=== PATIENT | female | born 1970 | race Hispanic/Latino ===

== ENCOUNTER 2018-08-09 11:53 | Emergency (ER) | payer OTHER ==
[~2018-08-09 11:53] MED LIST: CIPR-245 PO; LISI10TA7 PO
[2018-08-09 12:40] LABS: APPEARANCE,URINE Cloudy (CLEAR); BILIRUBIN,URINE Negative (NEGATIVE); COLOR,URINE Yellow (YELLOW); GLUCOSE, URINE (UA) Negative (NEGATIVE); KETONES,URINE Negative (NEGATIVE); LEUKOCYTE ESTERASE ,URINE Moderate (NEGATIVE); NITRATE,URINE Negative (NEGATIVE); OCCULT BLOOD,URINE Large (NEGATIVE); PH,URINE 5.5 (5.0-8.0); PROTEIN,URINE POS 1+ (NEGATIVE)
[2018-08-09 12:58] LABS: BASOPHILS % (AUTO) 0.4 % (0.0-5.0); EOSINOPHILS % (AUTO) 1.1 % (0.0-8.0); HEMATOCRIT 36.1 % (36-48); LYMPHOCYTES % (AUTO) 17.4 % (21.0-51.0); MEAN CORPUSCULAR HEMOGLOBIN 29.1 pg (27.0-33.0); MEAN CORPUSCULAR HGB CONC 33.8 g/dL (32.0-36.0); MEAN CORPUSCULAR VOLUME 86.1 fL (79-99); MONOCYTES % (AUTO) 9.1 % (3.0-13.0); PLATELET COUNT (AUTO) 397 K/uL (130-400); RED CELL DISTRIBUTION WIDTH 13.3 % (11.0-15.5); WHITE BLOOD COUNT (AUTO) 13.5 K/uL (4.8-10.8)
[2018-08-09 13:06] LABS: CREATININE 0.6 mg/dL (0.5-1.5); POTASSIUM 3.6 mmol/L (3.5-5.1)
[2018-08-09 13:15] LABS: HCG,QUAL RESULT NEGATIVE (NEGATIVE)
[2018-08-09 14:10] LABS: BACTERIA,URINE Rare /HPF (None Seen); SQUAMOUS EPITHELIAL CELL,UR Few /HPF (0-2); WBC,URINE 0-1 /HPF (0-1)
== END 2018-08-09 14:26 | disposition home or self-care (01) ==
LOC: EDH 11:53
DX: R10.31 Right lower quadrant pain (principal); R10.2 Pelvic and perineal pain; I10 Essential (primary) hypertension; Z88.6 Allergy status to analgesic agent; Z98.890 Other specified postprocedural states
CPT/HCPCS: 36415; 76830; 80048; 81001; 81025; 85025; 87486; 87797

== ENCOUNTER 2018-10-13 20:41 | Emergency (ER) | payer OTHER | END 2018-10-13 22:40 | disposition home or self-care (01) | LOC: EDH 20:41 | DX: S39.012A Strain of muscle, fascia and tendon of lower back, initial encounter (principal); I10 Essential (primary) hypertension; Z88.5 Allergy status to narcotic agent; W18.39XA Other fall on same level, initial encounter; Y93.89 Activity, other specified; Y92.89 Other specified places as the place of occurrence of the external cause; Y99.8 Other external cause status | CPT/HCPCS: 72131; 81025 ==

== ENCOUNTER 2024-03-18 19:59 | Emergency (ER) | payer OTHER ==
[~2024-03-18] VITALS: Ht 154.9 cm; Wt 71.2 kg
[~2024-03-18 19:59] MED LIST changes: -CIPR-245 PO; +CIPR500T10 PO; +LISI10TA24 PO; -LISI10TA7 PO
[2024-03-18] MEDS ORDERED: PRED20TA3 PO (21:58)
[2024-03-18] MEDS ORDERED: VALA100031 PO (21:58)
[2024-03-18 22:29] VITALS: BP 165/90; PULSE 57; RESP 12; O2SAT 98
[2024-03-18] MEDS: DEXAMETHASONE SOD PHOSPHATE 4 MG/ML 1ML VIAL IM ONE (22:34)
== END 2024-03-18 22:39 | disposition home or self-care (01) ==
LOC: EDH 19:59
DX: G51.0 Bell's palsy (principal); I10 Essential (primary) hypertension; Z79.899 Other long term (current) drug therapy; Z98.890 Other specified postprocedural states; Z88.5 Allergy status to narcotic agent
CPT/HCPCS: 99283; 96372; J1100

== ENCOUNTER 2025-05-18 10:36 | Emergency (ER) | payer BC ==
[~2025-05-18] VITALS: Ht 154.9 cm; Wt 73.9 kg
[~2025-05-18 10:36] MED LIST changes: -CIPR500T10 PO; +IBUP-2076 PO
[2025-05-18] MEDS: MAGNESIUM CITRATE 296 ML SOLUTION PO ONE (11:14)
[2025-05-18] MEDS: LACTULOSE 20 GM/30 ML UDCUP PO ONE (11:14)
[2025-05-18 11:18] LABS: IMMATURE GRANULOCYTE ABSOLUTE 0.02 K/uL (0-1); NUCLEATED RED BLOOD CELLS 0.0 % (0.0-0.19); PLATELET COUNT (AUTO) 459 K/uL (130-400); RED BLOOD CELL COUNT(AUTO) 4.20 MIL/uL (4.00-5.50); RED CELL DISTRIBUTION WIDTH 12.3 % (11.0-15.5); WHITE BLOOD COUNT (AUTO) 7.0 K/uL (4.8-10.8)
[2025-05-18 11:21] LABS: CREATININE 0.6 mg/dL (0.5-1.0); GLOMERULAR FILTR. RATE CALC 107.0 mL/min (>90); GLUCOSE,RANDOM 106.0 mg/dL (70-105); SODIUM SERUM 138.0 mmol/L (136-145); UREA NITROGEN, BLOOD 11.0 mg/dL (7-18)
--- NOTE | 2025-05-18 12:14 | ERN ---
General Chief Complaint: Constipation Stated Complaint: CONSTIPATION Time Seen by MD: 10:40 Source: patient History of Present Illness Initial Comments Patient is a 55-year-old female coming in complaining of constipation. Per patient she had surgery on the 14 toe days ago for gallbladder removal. She states that three days ago she started having some problems defecating. Allergies: Coded Allergies: morphine (Verified Allergy, Unknown, 01/07/17) Home Meds Active Scripts Ibuprofen (Ibuprofen) 400 Mg Tablet, 400 MG PO Q6HPRN PRN for PAIN for 30 Days, #30 TAB Prov:ANJUM SOLIS MD 05/07/25 Reported Medications Lisinopril (Lisinopril) 10 Mg Tablet, 10 MG PO DAILY, TAB 01/07/17 Past Medical History Past Medical History: Diabetes-Type II, Hypothyroid Medical History Other: HX OF MERCER'S PALSY Past Surgical History: Cholecystectomy, ROS Dictation CONSTITUTIONAL: No chills, no fever, no weakness, no diaphoresis, no malaise. HEAD/FACE: No signs of trauma. EENT: No eye pain, no blurred vision, no tearing, no double vision, no ear pain, no ear discharge, no nose pain, no nasal congestion, no throat pain, no throat swelling, no mouth pain. RESPIRATORY: No cough, no orthopnea, no SOB, no stridor, no wheezing. CARDIOVASCULAR: No chest pain, no edema, no palpitations, no syncope. GASTROINTESTINAL/ABDOMINAL: abdominal pain, constipation, no diarrhea, no nausea, no vomiting. GENITOURINARY: No abnormal discharge, no dysuria, no frequent urination, no he maturia. No complaints of pain in the genitals. MUSCULOSKELETAL: No back pain, no gout, no joint pain, no joint swelling, no m uscle pain, no muscle stiffness, no neck pain. INTEGUMENTARY: No change in color, no change in hair/nails, no dryness, no lesi on, no lumps, no rash. NEUROLOGICAL/PSYCH: No anxiety, not depressed, no emotional problem, no headache, no numbness, no pre-existing deficit, no history of seizures, no tremors, no weakness. HEMATOLOGIC/LYMPHATIC: Not anemic, no history of blood clots, no apparent bleeding, no bruising, glands not swollen. All Systems Negative, Except as Noted. Physical Exam Physical Exam Dictation VITAL SIGNS: Reviewed. GENERAL APPEARANCE: Alert, oriented x3, no acute distress, obese. HEAD AND FACE: Non-traumatic. EYES: PERRL, pink conjunctivas, eyelid no trauma, anterior chamber clear. EARS: Pinnas intact and no signs of trauma or erythema. Ear canals clear and no discharge. TMs no erythema. NOSE: No discharge, no bleeding. OROPHARYNX: Mouth normal, teeth no caries, tongue pink. Pharynx clear, no erythema. Tonsils no exudates, no abscesses noted. Mucous membrane moist. NECK: Supple, non-tender, no thyromegaly, no masses, no JVD, no bruits. BREAST: Deferred. CHEST: No tenderness, no crepitus, no paradoxical movement, no retractions. LUNGS: Clear, well-ventilated, symmetric, no rales, no wheezing, no rhonchi, no stridor, good breath sounds bilaterally. HEART: Regular rate, regular rhythm, no murmur, no gallops. VASCULAR: No peripheral edema. ABDOMEN: Soft, positive bowel sounds, distended, no guarding, tender, no rebound, no masses no hepatomegaly, no splenomegaly, no Briceno's sign, no hernias. RECTAL: Deferred. GENITAL: Deferred. NEUROLOGICAL: Normal speech, gross motor function intact, gross sensory function intact. MUSCULOSKELETAL: Neck nontender, full range of motion, back nontender, full range of motion. EXTREMITIES: Nontender, full range of motion. SKIN: Color pink, dry, no turgor, no rash, no lacerations, no abrasions, no contusions. LYMPHATICS: Deferred. Results Laboratory and Microbiology Lab and Micro Result Laboratory Tests Test 05/18/25 11:01 White Blood Count 7.0 K/uL (4.8-10.8) Red Blood Count 4.20 MIL/uL (4.00-5.50) Hemoglobin 12.4 g/dL (12.0-16.0) Hematocrit 37.1 % (36-48) Mean Corpuscular Volume 88.3 fL (79-99) Mean Corpuscular Hemoglobin 29.5 pg (27.0-33.0) Mean Corpuscular Hemoglobin Concent 33.4 g/dL (32.0-36.0) Red Cell Distribution Width 12.3 % (11.0-15.5) Platelet Count 459 K/uL (130-400) H Mean Platelet Volume 10.9 fL (7.5-10.5) H Immature Granulocyte % (Auto) 0.3 % (0-1) Neutrophils (%) (Auto) 50.1 % (40.0-77.0) Lymphocytes (%) (Auto) 37.9 % (21.0-51.0) Monocytes (%) (Auto) 8.7 % (3.0-13.0) Eosinophils (%) (Auto) 2.3 % (0.0-8.0) Basophils (%) (Auto) 0.7 % (0.0-5.0) Neutrophils # (Auto) 3.5 K/uL (1.8-7.7) Lymphocytes # (Auto) 2.7 K/uL (1.0-4.8) Monocytes # (Auto) 0.6 K/uL (0.1-1.0) Eosinophils # (Auto) 0.16 K/uL (0.00-0.70) Basophils # (Auto) 0.05 K/uL (0.00-0.20) Absolute Immature Granulocyte (auto 0.02 K/uL (0-1) Nucleated Red Blood Cells 0.0 % (0.0-0.19) Sodium Level 138 mmol/L (136-145) Potassium Level 3.9 mmol/L (3.5-5.1) Chloride Level 101 mmol/L (101-111) Carbon Dioxide Level 29 mmol/L (21-32) Blood Urea Nitrogen 11 mg/dL (7-18) Creatinine 0.6 mg/dL (0.5-1.0) Glomerular Filtration Rate Calc 107 mL/min (>90) Random Glucose 106 mg/dL (70-105) H Total Calcium 8.7 mg/dL (8.5-10.1) Labs Reviewed?: Yes MDM MDM: Differential diagnosis: Constipation, abdominal pain, Rationale: Tests considered and ordered secondary to shared decision making include: Previous outside records reviewed: Old ER visits. Risk of complication and/or morbidity or mortality of patient management: None Medications-Per medication reconciliation Need for hospitalization: Patient does not meet criteria for hospitalization. Patient is a 55-year-old female coming in complaining of constipation. Laboratory workup within normal limits. Patient received oral laxatives she also received lead enema. She states he was able to finally defecate discharged in stable condition with a diagnosis of constipation. I did advised her appropriate follow up with. ED Course Orders Procedure Category Date Status Time Cbc With Differential LAB 05/18/25 Complete 10:46 Basic Metabolic Panel LAB 05/18/25 Complete 10:46 Lactulose 20 Gm/30 Ml PHA 05/18/25 Complete Udcup (Constulose 11:00 Magnesium Citrate PHA 05/18/25 Complete (Magnesium Citrate) 11:00 Fleet Order CPOE 05/18/25 Transmitted 13:19 Current Medications Medications (Trade) Dose Ordered Sig/Mere Route PRN Reason Start Time Stop Time Status Last Admin Dose Admin Lactulose (Constulose 20gm/ 30ml Udcup) 20 gm ONCE ONCE PO 05/18/25 11:00 05/18/25 11:01 DC 05/18/25 11:14 Magnesium Citrate (Magnesium Citrate) 296 ml ONCE ONCE PO 05/18/25 11:00 05/18/25 11:01 DC 05/18/25 11:14 Vital Signs Date Time Temp Pulse Resp B/P (MAP) Pulse Ox O2 Delivery O2 Flow Rate FiO2 05/18/25 10:43 98.1 72 16 151/85 99 Room Air* 0 21 05/18/25 10:41 98.1 72 16 151/85 99 Room Air 0 DX & DISP Disposition: Discharge Departure Impression: Primary Impression: Constipation Condition: Stable Scripts Lactulose (Lactulose) 10 Gram/15 Ml Solution 30 ML PO BID for constipation, #500 ML 0 Refills Prov: JAROD STREET MD 05/18/25 Additional Instructions: FOLLOW-UP WITH PRIMARY CARE PROVIDER IN 1 TO 2 DAYS. TAKE MEDICATIONS DIRECTED HERE IN THE EMERGENCY ROOM. OKAY TO CONTINUE HOME MEDICATIONS UNLESS OTHERWISE DISCUSSED DURING YOUR VISIT IN THE EMERGENCY ROOM TODAY. RETURN TO YOUR NEAREST EMERGENCY ROOM IF SYMPTOMS WORSEN OR IF THERE IS NO IMPROVEMENT. CALL 911 IF YOU NEED IMMEDIATE ASSISTANCE. TAKE TYLENOL [id number] NEEDED AND IF NO CONTRAINDICATIONS ARE PRESENT. INCREASE ORAL HYDRATION. A WOUND CULTURE OR URINE CULTURE WAS ORDERED HERE IN THE EMERGENCY ROOM DEPARTMENT PLEASE FOLLOW-UP WITH PRIMARY CARE PROVIDER AND ADVISE THEM TO GET REPORTS FROM OUR FACILITY. IF YOU HAD ANY CARITO WRAP/SPLINTS THAT WERE APPLIED HERE, PLEASE DO NOT REMOVE THEM UNTIL YOU SEE YOUR PRIMARY CARE OR SPECIALTY. Referrals: Referrals: LORRAINE,SAMUEL MD (PCP) Time of Disposition: 13:[address] MD May 18, 2025 12:14
--- NOTE | 2025-05-18 13:22 | NUR ---
MISSY ENEMA ADMIN PER MD JAD LAI
[2025-05-18] MEDS ORDERED: LACT10SO85 PO (13:48)
[2025-05-18 13:50] VITALS: BP 142/80; PULSE 70; RESP 16; TEMP 98; O2SAT 99
--- NOTE | 2025-05-20 13:50 | OP ---
Operative Note: DATE OF PROCEDURE: 05/06/25 SURGEON: CHELO ARREOLA MD [employer]SEM[employer] MACHINE ADJUSTER: [] ANESTHESIA: [] General ANESTHESIOLOGIST/ARTIFICIAL FLOWERS DYER: [] PREOPERATIVE DIAGNOSIS: [] Acute cholecystitis POSTOPERATIVE DIAGNOSIS: [] The same SYNOPSIS: [] PROCEDURE: [] Laparoscopic cholecystectomy ESTIMATED BLOOD LOSS: [] Minimal INDICATIONS: [] DESCRIPTION OF PROCEDURE: []With the patient prepped in the usual fashion a supraumbilical incision was additionally directed to meet with placement of the trocar and abdomen insufflated. Three 5 mm trochars were placed in the right upper quadrant under direct vision. The gallbladder was exposed adhesions were taken down and I dissected triangle of Calot. The cystic duct was clearly identified was triple clipped and divided and the cystic artery was double clipped and divided. I took the gallbladder from the liver using cautery dissection and after removed from the liver bed I placed an in a bag. I cauterized the liver bed and I placed 40 cc of Marcaine 0.25% in the side of the abdomen as an abdominal tap block under direct vision. And after adequate hemostasis and irrigation I removed all the trochars under direct vision and the gallbladder was removed from the supraumbilical incision. After removing the gallbladder I placed interrupted [id number] Vicryl's and the fascia. All incisions were closed with gege Patient was stable at the end of the procedure CHELO ARREOLA MD May 20, 2025 13:50
== END 2025-05-18 13:56 | disposition home or self-care (01) ==
LOC: EDH 10:36
DX: K59.00 Constipation, unspecified (principal); E11.9 Type 2 diabetes mellitus without complications; E03.9 Hypothyroidism, unspecified; Z79.899 Other long term (current) drug therapy; Z88.5 Allergy status to narcotic agent; Z90.49 Acquired absence of other specified parts of digestive tract
CPT/HCPCS: 36415; 80048; 85025; 99283